=== PATIENT | female | born 1940 | race African-American/Black ===

== ENCOUNTER 2019-05-06 09:49 | Inpatient (IN) | payer MEDICARE, OTHER ==
[~2019-05-06] VITALS: Ht 157.5 cm; Wt 70.3 kg
[~2019-05-06 09:49] MED LIST: ACET120S27; DICYCLOMINE; DOCU100C24; FUR40T PO; METO-6 PO; OXYC10TA44 PO; POT10T PO; RIVA20TA PO; ROSU5TAB5 PO; ZOLP10TA PO
[2019-05-06 11:42] LABS: Basophils # (auto) 0 uL; Eosinophils # (auto) 0 uL; Eosinophils % (auto) 0.2 % (0.0-7.0); Hematocrit 40.7 % (36.0-46.0); Lymphocytes # (auto) 0.8 uL; Monocytes # (auto) 0.4 uL; Neutrophils # (auto) 2.8 uL; Nucleated Red Blood Cells % 0.5 %
[2019-05-06 11:44] LABS: Basophils % (auto) 0.8 % (0.0-2.0); Hemoglobin 12.1 g/dL (12.2-16.2); Lymphocytes % (auto) 19.7 % (10.0-50.0); Mean Corpuscular Hemoglobin 24.2 pg (28.0-32.0); Mean Corpuscular Hgb Conc. 29.7 g/dL (32.0-36.0); Mean Corpuscular Volume 81.8 fL (80.0-100.0); Neutrophils % (auto) 68.3 % (37.0-80.0); Platelet Count (auto) 133 10^3/uL (140-450); Red Blood Cells 4.98 10^6/uL (4.0-5.20); White Blood Cell 4.1 10^3/uL (4.4-10.8)
[2019-05-06 11:55] LABS: Albumin 3.3 g/dL (3.4-5.0); BUN/Creatinine Ratio 17.1; Calcium 8.4 mg/dL (8.5-10.1); Magnesium 2.4 mg/dL (1.6-2.6); Potassium 3.6 mmol/L (3.5-5.1)
[2019-05-06 12:01] LABS: Bilirubin, Total 0.9 mg/dL (0.2-1.0); Total Protein 5.8 g/dL (6.4-8.2)
[2019-05-06] MEDS ORDERED: NITROGLYCERIN 0.4 MG SL TAB SL PRN (17:30)
[2019-05-06] MEDS ORDERED: MORPHINE SULF INJ 2 MG/ML SYRINGE 1ML IV PRN (17:30)
[2019-05-06] MEDS ORDERED: ACETAMINOPHEN 500 MG TAB PO PRN (18:15)
--- NOTE | 2019-05-06 21:10 | NUR ---
Telemetry admit from [facility] admitted to Telemetry unit. Patient oriented to YESSICA MACKEY OCA, primary RN, unit, room, bed, and unit policies regarding patient care and visiting hours. Patient now on continuous telemetry monitoring, tele box #65 and telemetry reading on arrival to unit is A-fib. Patient placed on bedside oxygen, weighed by bedscale and encouraged to call if they need something. All questions and concerns addressed, patient verbalized understanding. Bed in lowest locked position, call light within reach, side rails up x2, fall precautions in place. Will continue to monitor Q1hr and PRN.
[2019-05-06] MEDS ORDERED: ATORVASTATIN 20 MG TAB PO SCH (22:00)
[2019-05-06] MEDS: HYDROcodone-ACET 5/325MG TAB PO PRN (22:46)
[2019-05-06] MEDS ORDERED: ALPR0.5T PO (23:49)
[2019-05-07] MEDS: HYDROcodone-ACET 5/325MG TAB PO PRN ×2 (04:41→10:57)
[2019-05-07 05:22] VITALS: BP 112/73
[2019-05-07 06:20] LABS: Basophils # (auto) 0 uL; Basophils % (auto) 0.3 % (0.0-2.0); Eosinophils # (auto) 0 uL; Eosinophils % (auto) 0.4 % (0.0-7.0); Hematocrit 38.5 % (36.0-46.0); Hemoglobin 11.6 g/dL (12.2-16.2); Lymphocytes # (auto) 0.9 uL; Lymphocytes % (auto) 30.7 % (10.0-50.0); Mean Corpuscular Hemoglobin 24.6 pg (28.0-32.0); Mean Corpuscular Hgb Conc. 30.2 g/dL (32.0-36.0); Mean Corpuscular Volume 81.5 fL (80.0-100.0); Monocytes # (auto) 0.3 uL; Monocytes % (auto) 12.2 % (0.0-12.0); Neutrophils # (auto) 1.6 uL; Neutrophils % (auto) 56.4 % (37.0-80.0); Nucleated Red Blood Cells % 0.5 %; Platelet Count (auto) 117 10^3/uL (140-450); Red Blood Cells 4.73 10^6/uL (4.0-5.20); Red Cell Distribution Width 19.7 % (11.8-14.3); White Blood Cell 2.8 10^3/uL (4.4-10.8)
[2019-05-07 07:10] LABS: Calcium 8.7 mg/dL (8.5-10.1); Potassium 3.9 mmol/L (3.5-5.1)
[2019-05-07 07:15] LABS: Albumin 3.2 g/dL (3.4-5.0); BUN/Creatinine Ratio 15.1; Bilirubin, Total 1.1 mg/dL (0.2-1.0); Magnesium 2.3 mg/dL (1.6-2.6); Phosphorus 2.8 mg/dL (2.5-4.90); Total Protein 5.7 g/dL (6.4-8.2)
[2019-05-07] MEDS ORDERED: RIVAROXABAN 15 MG TAB PO SCH (08:00)
--- NOTE | 2019-05-07 08:45 | NUR ---
ELEVATED HEART RATE WAS INFORMED BY NURSING STAFF, THAT RADAR TESTER CALLED STATION TO INFORM THAT PATIENTS HEART RATE WENT INTO THE 150'S. PATIENT IMMEDIATELY ASSESSED. PT SEEN AMBULATING IN HALLWAY. PATIENT RETURNED TO BED. PATIENT DENIES ANY CHEST PAIN OR DISTRESS AT THIS TIME. PATIENT VERBALIZED THAT SHE 'CAN TELL [HER] HEART RATE IS HIGH, BUT NOT THAT HIGH', WHEN PATIENT WAS INFORMED OF SITUATION. VITAL SIGNS FOLLOWS: BP 105/79, PULSE 98, SATURATING 95% ON 2L NC. HEART RATE CURRENTLY DISPLAYING AFIB 90'S'-100'S ON MONITOR. WILL CONTINUE TO MONITOR.
[2019-05-07 09:00] VITALS: BP 98/75
--- NOTE | 2019-05-07 09:30 | NUR ---
ELEVATED HEART RATE AGAIN WAS INFORMED THAT PATIENTS HEART RATE WAS ELEVATED. PATIENT SHOWING AFIB 140'S ON MONITOR. PATIENT INITIALLY SEEN IN BATHROOM CLEANING HERSELF UP. PATIENT RETURNED TO BED WITHOUT INCIDENT. ENCOURAGED PATIENT TO REMAIN IN BED UNTIL FURTHER EVALUATED BY MD. PT VERBALIZED UNDERSTANDING. VITAL SIGNS FOLLOWS: BP 102/81, SATURATING 96% ON 2L NC. EKG COMPLETED SHOWING AFIB 97 BPM. WILL ADMINISTER 1000 TOPROL AND REASSESS MEDICATION EFFECTIVENESS.
[2019-05-07] MEDS ORDERED: FUROSEMIDE 40 MG TAB PO SCH (10:00)
[2019-05-07] MEDS ORDERED: DOCUSATE SOD 100 MG CAP PO SCH (10:00)
[2019-05-07] MEDS ORDERED: METOPROLOL SUCCINATE XL 50 MG TAB PO SCH (10:00)
--- NOTE | 2019-05-07 10:15 | NUR ---
HEART RATE PATIENT CURRENTLY AFIB 80-90'S ON CONSUMER SALES REPRESENTATIVE. WILL CONTINUE TO MONITOR.
--- NOTE | 2019-05-07 10:35 | NUR ---
AT BEDSIDE DR GONZALEZ AT BEDSIDE TO SEE PATIENT.
--- NOTE | 2019-05-07 10:42 | NUR ---
OPENING NOTE ASSUMED CARE OF PATIENT AWAKE AND ALERT. NO S/S OF DISTRESS NOTED. PT HAS COMPLAINT OF 10/10 GENERALIZED CHRONIC PAIN, WILL MEDICARE PER MD ORDER AND MAR. PT UPDATED ON POC AND ALL QUESTIONS ANSWERED. BED IS IN LOWEST, LOCKED POSITION WITH SIDE RAILS UP X2 AND CALL LIGHT WITHIN REACH. WILL CONTINUE TO MONITOR Q1H AND PRN
--- NOTE | 2019-05-07 10:45 | NUR ---
CARDIOLOGY CONSULT/MD PAGED PATIENT STATING DR. GONZALEZ WAS ALREADY IN TO SEE HER. MD NO LONGER SEEN ON UNIT. CONTACTED CIVIL ESTIMATOR TO CONFIRM HOW HIGH PATIENTS HEART RATE WENT. TECH STATING HEART RATE WENT UP TO 200 BPM. REQUESTED TECH SEND STRIPS FOR CONFIRMATION. STATING SHE WILL SEND TELE STRIPS. CONTACTED DR. GONZALEZ'S EXCHANGE TO INFORM OF ELEVATED READINGS. WAITING LAST REMODELER REPAIRER BACK.
--- NOTE | 2019-05-07 11:10 | NUR ---
AT BEDSIDE DR. JOLLEY AT BEDSIDE. SPOKE TO MD REGARDING ELEVATED HEART RATE UP TO 198 AND NO RETURNED PAGE FROM DR. GONZALEZ. MD AWARE. NO NEW ORDERS RECEIVED. MD STATING PATIENT OK TO BE DC'D. OK TO HAVE OUTPATIENT ECHO AND PACEMAKER INTERROGATION PER MD.
[2019-05-07 12:16] VITALS: BP 102/81
--- NOTE | 2019-05-07 12:37 | NUR ---
AMA FOR OXYGEN FOR TRANSPORT INQUIRED TO WHETHER OR NOT PATIENTS FAMILY WOULD BE BRINGING PORTABLE HOME O2 FOR PATIENT TRANSPORT HOME. PATIENT STATING SHE WAS NOT PLANNING ON HAVING FAMILY BRING OXYGEN BECAUSE SHE DOES NOT NEED OXYGEN FOR SUCH A SHORT DISTANCE HOME. TOLD PATIENT I WOULD LIKE TO TEST OXYGEN SATURATION LEVELS ON RA PRIOR TO DEPARTURE, PATIENT REFUSING, PT STATING, ' I KNOW I WILL DROP A LITTLE OFF OF IT, BUT I DON'T NEED IT JUST TO GET HOME'. PT STRONGLY ENCOURAGED TO HAVE FAMILY BRING HOME O2, BUT PATIENT ADAMANT THAT SHE DOES NOT NEED IT FOR TRANSPORT HOME. SPOKE TO PT REGARDING POSSIBILITY OF R/T OXYGEN DEPLETION. PT VERBALIZED UNDERSTANDING, BUT CONTINUED TO REFUSE TO WAIT FOR PORTABLE HOME O2 TO BE OBTAINED BY FAMILY. SPOKE TO CNC MACHINE PROGRAMMERTRACEY TO INFORM. AMA SIGNED BY PATIENT AND PLACED IN CHART. PATIENTS SON, BEAU, ON UNIT AWARE. STATING MOTHER DOES NOT NEED OXYGEN FOR TRANSPORT HOME.
[2019-05-07 13:00] VITALS: BP 129/74
--- NOTE | 2019-05-07 13:30 | NUR ---
Discharge instructions given as ordered. Encourage to follow up with PMD as instructed. All questions and concerns addressed. Patient verbalized understanding. Medication reconciliation form completed and copy given to patient. IV removed with catheter intact, pressure dressing applied. Telemetry unit returned to ICU. While primary RN on lunch, patient was taken to vehicle via wheelchair with all personal belongings, accompanied by staff and family member. No distress noted at primary RN's last point of contact with patient.
== END 2019-05-07 13:30 | disposition home or self-care (01) | DRG 309 ==
LOC: ER 09:49 → EDUNIT# 09:49 → EDBD 09:49 → TELE 09:50 → TELE-WESTW 21:06
PROVIDERS: ADMIT Hospitalist; ATTEND Hospitalist
DX: I48.92 Unspecified atrial flutter (principal); I50.42 Chronic combined systolic (congestive) and diastolic (congestive) heart failure; D68.69 Other thrombophilia; I95.9 Hypotension, unspecified; I48.20 Chronic atrial fibrillation, unspecified; Z99.81 Dependence on supplemental oxygen; E78.5 Hyperlipidemia, unspecified; F41.9 Anxiety disorder, unspecified; Z96.649 Presence of unspecified artificial hip joint; M19.90 Unspecified osteoarthritis, unspecified site; I11.0 Hypertensive heart disease with heart failure; I25.10 Atherosclerotic heart disease of native coronary artery without angina pectoris; J44.9 Chronic obstructive pulmonary disease, unspecified; Z79.01 Long term (current) use of anticoagulants; Z90.710 Acquired absence of both cervix and uterus; Z95.0 Presence of cardiac pacemaker; Z82.49 Family history of ischemic heart disease and other diseases of the circulatory system; Z82.5 Family history of asthma and other chronic lower respiratory diseases; Z82.3 Family history of stroke; Z79.899 Other long term (current) drug therapy
CPT/HCPCS: 36415; 71045; 80053; 80061; 83036; 83735; 84100; 84484; 85025; 93005; 94761; G0378

== ENCOUNTER 2020-01-18 16:42 | Inpatient (IN) | payer MEDICARE, OTHER ==
[~2020-01-18] VITALS: Ht 160 cm; Wt 64.6 kg
[~2020-01-18 16:42] MED LIST changes: +ALPR0.5T PO
[2020-01-18 18:53] LABS: Basophils # (auto) 0 10 ^3/uL (0-0.2); Basophils % (auto) 0.9 % (0.0-2.0); Eosinophils # (auto) 0 10 ^3/uL (0-0.8); Hemoglobin 11.5 g/dL (12.2-16.2); Mean Corpuscular Hemoglobin 22.1 pg (28.0-32.0); Platelet Count (auto) 143 10^3/uL (140-450)
[2020-01-18 18:55] LABS: Eosinophils % (auto) 0.9 % (0.0-7.0); Hematocrit 40.6 % (36.0-46.0); Lymphocytes # (auto) 0.9 10 ^3/uL (0.4-5.4); Lymphocytes % (auto) 31.6 % (10.0-50.0); Mean Corpuscular Hgb Conc. 28.4 g/dL (32.0-36.0); Mean Corpuscular Volume 77.9 fL (80.0-100.0); Monocytes # (auto) 0.3 10 ^3/uL (0-1.3); Monocytes % (auto) 10.5 % (0.0-12.0); Neutrophils # (auto) 1.7 10 ^3/uL (1.6-8.6); Neutrophils % (auto) 56.1 % (37.0-80.0); Red Blood Cells 5.22 10^6/uL (4.0-5.20)
[2020-01-18 19:00] LABS: Nucleated Red Blood Cells % 3.6 %; Red Cell Distribution Width 23.3 % (11.8-14.3)
[2020-01-18 19:04] LABS: Albumin 3.2 g/dL (3.4-5.0); BUN/Creatinine Ratio 20.7; Calcium 8.7 mg/dL (8.5-10.1); Potassium 3.8 mmol/L (3.5-5.1)
[2020-01-18 19:13] LABS: Bilirubin, Total 1.5 mg/dL (0.2-1.0)
[2020-01-18 23:13] LABS: Lactic Acid w/Reflex 3.6 mmol/L (0.4-2.0)
[2020-01-19] MEDS ORDERED: PIPERACILLIN-TAZOB 3.375GM 100 ML IV ONE (01:00)
[2020-01-19] MEDS ORDERED: VANCOMYCIN 1GM/250ML 250 ML IV ONE (01:45)
[2020-01-19] MEDS ORDERED: SODIUM CHLORIDE 0.9% 1,000 ML IV ONE (01:45)
[2020-01-19 02:55] LABS: INR 1.47 (0.9-1.15); Partial Thromboplastin Time 29.2 sec (23.64-32.05)
[2020-01-19 03:03] LABS: Urine Bacteria FEW /hpf (None Seen); Urine Blood Negative /uL (Negative); Urine Hyaline Cast MOD /lpf (0 - 2); Urine Specific Gravity 1.015 (1.001-1.035)
[2020-01-19 03:05] LABS: Urine WBC 5 /hpf (0 - 5)
[2020-01-19] MEDS ORDERED: VANCOMYCIN PER PHARMACY 0 MG IV SCH (05:30)
[2020-01-19] MEDS ORDERED: ONDANSETRON HCL 4 MG/2 ML VIAL IV PRN (05:30)
[2020-01-19] MEDS ORDERED: TEMAZEPAM 15 MG CAP PO PRN (05:30)
[2020-01-19] MEDS ORDERED: NITROGLYCERIN 0.4 MG SL TAB SL PRN (06:00)
[2020-01-19] MEDS ORDERED: MORPHINE SULF INJ 2 MG/ML SYRINGE 1ML IV PRN (06:00)
[2020-01-19] MEDS: FUROSEMIDE 20 MG/2 ML VIAL IV SCH ×2 (06:35→18:00)
[2020-01-19] MEDS: PIPERACILLIN-TAZOB 2.25GM 50 ML IV SCH ×3 (08:00→20:42)
[2020-01-19] MEDS: PANTOPRAZOLE 40 MG TAB PO SCH (09:38)
[2020-01-19] MEDS ORDERED: FUROSEMIDE 20 MG/2 ML VIAL IV ONE (10:00)
[2020-01-19] MEDS: CARVEDILOL 3.125 MG TAB PO SCH ×2 (11:24→22:00)
[2020-01-19] MEDS: HYDROcodone-ACET 5/325MG TAB PO PRN (12:00)
--- NOTE | 2020-01-19 17:15 | NUR ---
Telemetry admit from ER [facility] admitted to Telemetry unit after SBAR received. Patient oriented to Uzma Tapia, primary RN, unit, room, bed, and unit policies regarding patient care and visiting hours. Patient now on continuous telemetry monitoring, tele box # and telemetry reading on arrival to unit is . Patient placed on bedside oxygen, weighed by bedscale and encouraged to call if they need something. All questions and concerns addressed, patient verbalized understanding. Note:
[2020-01-19] MEDS: RIVAROXABAN 15 MG TAB PO SCH (18:00)
--- NOTE | 2020-01-19 18:00 | NUR ---
CLOSING NOTES PT ALERT AND ORIENTED X 4. DANGLES AT BEDSIDE, EATING DINNER. DENIES PAIN. SOB ONLY WHEN LAYING FLAT. SWELLING ON BILATERAL LE, RIGHT ANKLE GREATER THAN LEFT. PT WOULD PREFER TO WALK TO THE BATHROOM WITH A WALKER. EXPLAINED TO PATIENT THAT SINCE SHE'S WEAKER THAN BEFORE SHE WILL HAVE TO WAIT FOR P.T. EVALUATION. BEDSIDE COMMODE PROVIDED FOR PATIENT. REPORT GIVEN TO ZAIDA RICE. Addendum: 01/19/20 at 2015 by Uzma Tapia RN NOTES FOR 1930
--- NOTE | 2020-01-19 19:30 | NUR ---
CLOSING NOTES PT ALERT AND ORIENTED X 4. DANGLES AT BEDSIDE, EATING DINNER. DENIES PAIN. SOB ONLY WHEN LAYING FLAT. SWELLING ON BILATERAL LE, RIGHT ANKLE GREATER THAN LEFT. PT WOULD PREFER TO WALK TO THE BATHROOM WITH A WALKER. EXPLAINED TO PATIENT THAT SINCE SHE'S WEAKER THAN BEFORE SHE WILL HAVE TO WAIT FOR P.T. EVALUATION. BEDSIDE COMMODE PROVIDED FOR PATIENT. REPORT GIVEN TO ZAIDA RICE.
--- NOTE | 2020-01-19 19:35 | NUR ---
Opening Shift Note Assumed care of patient, awake and A/O x4. No S/S of distress/SOB or pain. Pt on 3l NC, lester draining to gravity and patent, moderate assist to toilet and bedside commode, on Dobutamine drip @ 9.525 ml/hr. Bed in lowest locked position, bed rails lifted x2, safety precautions in place, call light within reach. Instructed on POC and to call for assist PRN, will continue to monitor for changes Q1hr and PRN. Signed: 01/20/20 at 0414 by INDIGO PARKER <Co-Signature Required> Co-Signed: 01/20/20 at 0414 by Alanna Persaud RN RN
[2020-01-19 20:00] VITALS: BP 104/67
[2020-01-19 22:00] VITALS: BP 104/67
[2020-01-19] MEDS: DOBUTamine 1000MCG/ML 250 ML IV SCH (22:40)
[2020-01-20] MEDS: PIPERACILLIN-TAZOB 2.25GM 50 ML IV SCH ×4 (02:24→21:42)
--- NOTE | 2020-01-20 04:50 | NUR ---
IV removal IV leaking blood. IV to Left AC, DC'd with clean sterile technique, catheter fully intact. Pressure dressing applied to site. Patient tolerated well. Signed: 01/20/20 at 0656 by INDIGO PARKER <Co-Signature Required> Co-Signed: 01/20/20 at 0656 by Alanna Persaud RN RN
[2020-01-20 05:00] VITALS: BP 104/71
[2020-01-20] MEDS: HYDROcodone-ACET 5/325MG TAB PO PRN ×2 (05:18→21:48)
[2020-01-20] MEDS: FUROSEMIDE 20 MG/2 ML VIAL IV SCH ×2 (06:23→18:43)
[2020-01-20 07:19] LABS: Basophils # (auto) 0 10 ^3/uL (0-0.2); Eosinophils # (auto) 0.1 10 ^3/uL (0-0.8); Hemoglobin 12.1 g/dL (12.2-16.2); Lymphocytes # (auto) 0.8 10 ^3/uL (0.4-5.4); Mean Corpuscular Hemoglobin 22.4 pg (28.0-32.0); Monocytes # (auto) 0.2 10 ^3/uL (0-1.3); Neutrophils # (auto) 1.9 10 ^3/uL (1.6-8.6); White Blood Cell 3.1 10^3/uL (4.4-10.8)
[2020-01-20 07:20] LABS: Albumin 3.5 g/dL (3.4-5.0); Basophils % (auto) 0.7 % (0.0-2.0); Calcium 9.5 mg/dL (8.5-10.1); Hematocrit 42.3 % (36.0-46.0); Lymphocytes % (auto) 26.8 % (10.0-50.0); Mean Corpuscular Hgb Conc. 28.6 g/dL (32.0-36.0); Mean Corpuscular Volume 78.4 fL (80.0-100.0); Monocytes % (auto) 7.2 % (0.0-12.0); Neutrophils % (auto) 62.3 % (37.0-80.0); Nucleated Red Blood Cells % 0.7 %; Platelet Count (auto) 132 10^3/uL (140-450); Potassium 3.5 mmol/L (3.5-5.1)
[2020-01-20 07:22] LABS: Red Cell Distribution Width 24.3 % (11.8-14.3)
[2020-01-20 07:24] LABS: BUN/Creatinine Ratio 19.1; Bilirubin, Total 2.7 mg/dL (0.2-1.0); Total Protein 6.4 g/dL (6.4-8.2)
[2020-01-20] MEDS: CARVEDILOL 3.125 MG TAB PO SCH ×3 (08:00→21:41)
--- NOTE | 2020-01-20 08:45 | NUR ---
SPOKE WITH PATIENTS GRACIELA YANEZ AND INQUIRED ABOUT PATIENT'S HOME MEDICATIONS. HE INFORMED ME THAT HE WOULD BE ABLE TO EITHER BRING THEM IN OR GET A LIST. I LET HIM KNOW THAT HE COULD CALL LATER AND GET AN UPDATE AND LET ME KNOW WHEN HE WOULD BE ABLE TO BRING MEDS OR MED LIST.
--- NOTE | 2020-01-20 09:30 | NUR ---
22G IV START TO LEFT HAND.
[2020-01-20] MEDS: PANTOPRAZOLE 40 MG TAB PO SCH (09:32)
[2020-01-20 10:00] VITALS: BP 107/67
--- NOTE | 2020-01-20 12:05 | NUR ---
SAYS OK TO HOLD COREG THIS AM.
[2020-01-20 13:00] VITALS: BP 108/74
[2020-01-20] MEDS: ACETAMINOPHEN 325 MG TAB PO PRN ×2 (14:41→19:43)
[2020-01-20 17:04] VITALS: BP 97/59
[2020-01-20] MEDS ORDERED: VANCOMYCIN 1GM/250ML 250 ML IV ONE (18:00)
[2020-01-20] MEDS: RIVAROXABAN 15 MG TAB PO SCH (18:43)
--- NOTE | 2020-01-20 19:50 | NUR ---
Opening Shift Note Assumed care of patient, awake, AAOx4. No S/S of distress/SOB. Patient C/O pain 3 headache. On 3L oxygen via nasal cannula. Dobutamine drip at 9.525 ml/hr. Bed in lowest locked position, side rails up x2, call light within reach. Instructed on POC and to call for assist PRN, will continue to monitor for changes Q1hr and PRN.
[2020-01-20 22:00] VITALS: BP 103/83
[2020-01-21] VITALS (7 sets, daily range): BP systolic 101–117; BP diastolic 69–78
[2020-01-21] MEDS: PIPERACILLIN-TAZOB 2.25GM 50 ML IV SCH ×4 (02:00→20:40)
[2020-01-21] MEDS: DOBUTamine 1000MCG/ML 250 ML IV SCH (03:07)
[2020-01-21] MEDS: FUROSEMIDE 20 MG/2 ML VIAL IV SCH ×2 (06:00→18:33)
--- NOTE | 2020-01-21 07:30 | NUR ---
Opening Note Assumed patient care from [facility] RN, Ariella. Patient currently out of bed using bedside commode. No signs of distress at this time. Respirations even and unlabored, denies pain and SOB at this time. No signs of distress. Will continue to monitor.
--- NOTE | 2020-01-21 09:00 | NUR ---
New IV New IV, 20 gauge started on left upper arm by ZAIDA Gibson. No signs of distress at this time, respirations even and unlabored, safety precautions in place, will continue to monitor.
[2020-01-21] MEDS: CARVEDILOL 3.125 MG TAB PO SCH ×2 (09:41→22:00)
[2020-01-21] MEDS: PANTOPRAZOLE 40 MG TAB PO SCH (09:42)
[2020-01-21] MEDS ORDERED: DIGOXIN 0.125 MG TAB PO ONE (10:30)
--- NOTE | 2020-01-21 10:33 | NUR ---
at Bedside Dr. Encinas at bedside, new orders received. Will continue to monitor.
--- NOTE | 2020-01-21 13:01 | NUR ---
Bowel Movement Patient had small, loose green bowel movement. Patient cleaned and soiled linens changed. Patient showed no signs of distress at this time, tolerated well, respirations even and unlabored, will continue to monitor. Addendum: 01/21/20 at 1806 by IVY LINDER RN RN Barrier cream applied.
[2020-01-21] MEDS: HYDROcodone-ACET 5/325MG TAB PO PRN ×2 (14:01→20:39)
[2020-01-21] MEDS: RIVAROXABAN 15 MG TAB PO SCH (18:32)
--- NOTE | 2020-01-21 19:15 | NUR ---
Opening Shift Note Received report from brando Evangelista RN. Assumed care of patient, awake and alert. No S/S of distress/SOB. On 3L oxygen via nasal cannula. Dobutamine drip at 9.525 ml/hr. Bed in lowest locked position, side rails up x2, call light within reach. Instructed on POC and to call for assist PRN, will continue to monitor for changes Q1hr and PRN. Bed placed in lowest position, bed alarm turned on and call light within reach.
[2020-01-21] MEDS ORDERED: ATORVASTATIN 20 MG TAB PO SCH (22:00)
--- NOTE | 2020-01-21 22:00 | NUR ---
Bowel movement Assisted patient to the commode and had a small soft bowel movement
[2020-01-22] MEDS: HYDROcodone-ACET 5/325MG TAB PO PRN (03:04)
[2020-01-22] MEDS: PIPERACILLIN-TAZOB 2.25GM 50 ML IV SCH ×3 (03:08→14:00)
[2020-01-22 05:17] LABS: Basophils # (auto) 0 10 ^3/uL (0-0.2); Eosinophils # (auto) 0.1 10 ^3/uL (0-0.8); Hemoglobin 11.3 g/dL (12.2-16.2); Mean Corpuscular Hemoglobin 22.5 pg (28.0-32.0); Monocytes # (auto) 0.3 10 ^3/uL (0-1.3); Neutrophils # (auto) 1.6 10 ^3/uL (1.6-8.6); Nucleated Red Blood Cells % 0.4 %; White Blood Cell 2.8 10^3/uL (4.4-10.8)
[2020-01-22 05:19] LABS: Basophils % (auto) 0.9 % (0.0-2.0); Eosinophils % (auto) 4.8 % (0.0-7.0); Hematocrit 38.6 % (36.0-46.0); Lymphocytes # (auto) 0.7 10 ^3/uL (0.4-5.4); Mean Corpuscular Hgb Conc. 29.3 g/dL (32.0-36.0); Mean Corpuscular Volume 76.9 fL (80.0-100.0); Monocytes % (auto) 10.9 % (0.0-12.0); Neutrophils % (auto) 57.4 % (37.0-80.0); Platelet Count (auto) 106 10^3/uL (140-450); Red Blood Cells 5.02 10^6/uL (4.0-5.20)
[2020-01-22 05:22] LABS: Red Cell Distribution Width 24.3 % (11.8-14.3)
[2020-01-22] MEDS: FUROSEMIDE 20 MG/2 ML VIAL IV SCH (05:32)
[2020-01-22 05:37] LABS: BUN/Creatinine Ratio 13.4; Calcium 8.6 mg/dL (8.5-10.1); Potassium 3.1 mmol/L (3.5-5.1)
[2020-01-22 05:43] VITALS: BP 114/78
--- NOTE | 2020-01-22 06:31 | NUR ---
ROUNDS Patient is up, awake and alert. Assisted patient to the commode, had a tiny soft bowel movement. Provided washcloths and warm water basin for clean up. Assisted patient back in bed, no distress noted and patient denies pain.
[2020-01-22 08:00] VITALS: BP 109/84
--- NOTE | 2020-01-22 08:00 | NUR ---
Opening Shift Note Assumed care of patient, awake and alertx4. No S/S of distress/SOB or pain. Instructed on POC and to call for assist PRN. No c/o pain. Bed at lowest locked position and calllight within reach. Will continue to monitor for changes Q1hr and PRN.
--- NOTE | 2020-01-22 08:30 | NUR ---
Bowel Movement Assisted patient to get cleaned up and back to bed. Patient tolerated well.
--- NOTE | 2020-01-22 08:50 | NUR ---
BM Assisted patient to the commode and had a small soft bowel movement, applied zguard to buttocks, patient tolerated well.
[2020-01-22 09:12] VITALS: BP 109/81
[2020-01-22] MEDS: PANTOPRAZOLE 40 MG TAB PO SCH (09:30)
[2020-01-22] MEDS: CARVEDILOL 3.125 MG TAB PO SCH (09:31)
[2020-01-22] MEDS ORDERED: ALLOPURINOL 100 MG TAB PO SCH (10:00)
[2020-01-22] MEDS ORDERED: DIGOXIN 0.125 MG TAB PO SCH (10:00)
--- NOTE | 2020-01-22 10:00 | NUR ---
BM Assisted patient to the commode and had a small soft bowel movement, applied zguard to buttocks, patient tolerated well.
[2020-01-22] MEDS ORDERED: VANCOMYCIN 1GM/250ML 250 ML IV SCH (11:00)
[2020-01-22] MEDS ORDERED: POTASSIUM CHL 20 Meq TABLET PO ONE (13:00)
[2020-01-22 13:42] VITALS: BP 98/73
--- NOTE | 2020-01-22 14:34 | NUR ---
Discharge planning Patient is discharged. Patient states she lives alone and needs help at home. [place] COLÓN Left a message. Awaiting call back. Addendum: 01/22/20 at 1512 by Caron Westfall RN Per patient's son, Toney Devi, patient lives across the [address] from her son and granddaughter. A family member will be home with her. [phone]. Also, patient has caregiver "Nae", [phone].
--- NOTE | 2020-01-22 14:40 | NUR ---
Bettencourt catheter discontinued Order to discontinue Bettencourt catheter. Bettencourt dc'd with clean technique following deflation of balloon. Patient tolerated well with no complaints of pain. Continue care.
--- NOTE | 2020-01-22 15:16 | NUR ---
BM Assisted patient to the commode and had a small soft bowel movement
--- NOTE | 2020-01-22 15:56 | NUR ---
Discharge instructions given as ordered. Encourage to follow up with PMD as instructed. All questions and concerns addressed. Patient verbalized understanding. Medication reconciliation form completed and copy given to patient. Home medications held in Pharmacy returned to patient. IV removed with catheter intact, pressure dressing applied, Bettencourt catheter removed. Telemetry unit returned to ICU. Patient taken to vehicle via wheelchair with all personal belongings, accompanied by this staff. No distress noted at time of departure.
== END 2020-01-22 15:50 | disposition home or self-care (01) | DRG 871 ==
LOC: ER 16:42 → EDUNIT# 16:42 → EDBD 16:42 → TELE 16:43 → TELE-WESTW 01-19 17:30
PROVIDERS: ADMIT Nurse Practitioner; ATTEND Family Medicine
DX: A41.9 Sepsis, unspecified organism (principal); I50.43 Acute on chronic combined systolic (congestive) and diastolic (congestive) heart failure; N17.0 Acute kidney failure with tubular necrosis; N39.0 Urinary tract infection, site not specified; I13.0 Hypertensive heart and chronic kidney disease with heart failure and stage 1 through stage 4 chronic kidney disease, or unspecified chronic kidney disease; I48.92 Unspecified atrial flutter; J44.9 Chronic obstructive pulmonary disease, unspecified; I48.91 Unspecified atrial fibrillation; D64.9 Anemia, unspecified; E78.00 Pure hypercholesterolemia, unspecified; I25.10 Atherosclerotic heart disease of native coronary artery without angina pectoris; M16.12 Unilateral primary osteoarthritis, left hip; N18.3 Chronic kidney disease, stage 3 (moderate); Z96.641 Presence of right artificial hip joint; F41.9 Anxiety disorder, unspecified; E78.5 Hyperlipidemia, unspecified; I95.9 Hypotension, unspecified; Z82.3 Family history of stroke; Z82.49 Family history of ischemic heart disease and other diseases of the circulatory system; Z82.5 Family history of asthma and other chronic lower respiratory diseases; Z90.710 Acquired absence of both cervix and uterus; Z95.0 Presence of cardiac pacemaker; Z88.5 Allergy status to narcotic agent
CPT/HCPCS: 36415; 71045; 74176; 80048; 80053; 80202; 81001; 82550; 82565; 83605; 83735; 83880; 84484; 85025; 85610; 85730; 87040; 87086; 87493; 93005; 93306; G0378; J2543

== ENCOUNTER → 2020-01-27 | Emergency (ER) | payer MEDICARE, OTHER ==
[~2020-01-27] VITALS: Ht 160 cm; Wt 63.5 kg
[~2020-01-27] MED LIST changes: +NOREPINEPHRINE 8 MG/250ML KIT 250 ML IV ONE
== END | disposition expired ==
LOC: EDUNIT# 14:09 → ER 14:17 → EDBD 14:17
DX: I46.9 Cardiac arrest, cause unspecified (principal); I11.0 Hypertensive heart disease with heart failure; I50.9 Heart failure, unspecified; I25.10 Atherosclerotic heart disease of native coronary artery without angina pectoris; J44.9 Chronic obstructive pulmonary disease, unspecified; E78.5 Hyperlipidemia, unspecified; I48.91 Unspecified atrial fibrillation
CPT/HCPCS: 31500; 92950